=== PATIENT | female | born 1985 | race Caucasian/White ===

== ENCOUNTER 2017-11-10 15:51 | Day surgery (SDC) | payer OTHER ==
[~2017-11-10 15:51] MED LIST: Dexamethasone 20 MG/5 ML VIAL ONE; Glycopyrrolate 0.2 MG/ML 5 ML SYRINGE ONE; Ketorolac Tromethamine 30 MG/ML VIAL ONE; Lidocaine 1% PF 5 ML VIAL ONE; PHENYLEPHRINE-NS 100 MCG/ML 10 ML SYRINGE ONE; PROPOFOL 200 MG/20 ML VIAL ONE
[2017-11-10] MEDS ORDERED: CEFAZOLIN/Water 2 GM/20 ML SYRINGE ONE (16:29)
[2017-11-10 16:54] LABS: Hemoglobin 15.7 g/dL (12.0-16.0); Mean Corpuscular HGB CONC 35.6 g/dL (32.0-36.0); Mean Corpuscular Hemoglobin 34.6 pg (27.0-31.0); Mean Corpuscular Volume 97.3 fL (78.0-98.0); Mean Platelet Volume 7.4 fL (7.4-10.4); Platelet Count 167 thou/uL (130-400); RBC Distribution Width 10.7 % (11.5-14.5); Red Blood Cell (RBC) Count 4.53 mill/uL (4.20-5.40); White Blood Cell (WBC) Count 6.2 thou/uL (4.8-10.8)
[2017-11-10] MEDS ORDERED: Scopolamine 1.5 mg/72 hour Patch ONE (16:54)
[2017-11-10] MEDS ORDERED: Bupivacaine HCl 0.5%/Epinephrine 1:200,000/PF 30 ml Vial ONE (17:08)
[2017-11-10] MEDS ORDERED: Fentanyl 100 MCG/2 ML VIAL ONE ×3 (18:30→20:50)
[2017-11-10] MEDS ORDERED: Midazolam HCl 2 mg/2 ml Vial ONE ×2 (18:31→20:04)
[2017-11-10] MEDS ORDERED: Promethazine HCl 25 MG/ML VIAL ONE ×2 (20:04→22:13)
[2017-11-10] MEDS ORDERED: Lidocaine 2% Jelly 5 ML TUBE ONE (20:04)
--- NOTE | 2017-11-11 02:13 | OP ---
DATE OF SURGERY: 11/10/2017 PREOPERATIVE DIAGNOSIS: Complex left adnexal mass. POSTOPERATIVE DIAGNOSIS: Complex left adnexal mass. PROCEDURE: Laparoscopic cystectomy of the left ovary along with biopsy of the left ovarian parenchym a. ESTIMATED BLOOD LOSS: Less than 50 mL. COMPLICATIONS: None. SURGEON: Geoff Arias MD DETAILS OF THE PROCEDURE: After obtaining consent, Ms. Thomas was taken back to the operating tree m, where her general endotracheal anesthesia was found to be adequate. She was prepped and draped in the normal sterile fashion, placed in Mu stirrups. Her bladder was drained with red rubber shan ter. A uterine manipulator was placed in the vagina, which included only a sponge stick. Attention was turned to the abdomen after gloves were changed. 0.5% Marcaine with epinephrine was then used to inject at the umbilical site as well as the lower 2 abdominal trocar sites. Three 5-mm blunt trocar s were used to enter the peritoneal cavity after insufflating with the Veress needle and CO2 gas. Th e patient was placed into a Trendelenburg position and the uterus was manipulated exposing the left o vary, which was significantly enlarged measuring approximately 5 x 6 cm. Needle-tip cautery was then used to incise the thinnest portion of the ovarian serosa exposing a serous watery appearing fluid. This was suctioned using a suction field enumerator until the ovary was shrunk down to approximately 20% of its original size. The cystic area was then irrigated with normal saline multiple times and the flu id suctioned out. A small piece below the serosa of the ovary was sampled and sent to Pathology for permanent section. The posterior cul-de-sac did have some straw-colored free fluid in it upon entry. This was also suctioned and cleaned. Hemostasis at the ovarian serosa was excellent following suct ioning and no further cautery was necessary to obtain hemostasis. A quick survey of the pelvis did n ot reveal any other injuries or problems. At this point, CO2 gas was allowed to escape. All the tro cars and instruments were withdrawn and 4-0 Monocryl was used to close the incisions along with [place] lind adhesive. Sponge stick was removed from the vagina. Final sponge and needle counts were correc t x3. The patient was then extubated and transferred to an ambulatory bed and taken to recovery in s table condition.
== END 2017-11-10 22:55 | disposition home or self-care (01) ==
LOC: SDC 15:51
PROVIDERS: ATTEND Obstetrics & Gynecology
PROC: 0UB14ZZ Excision of Left Ovary, Percutaneous Endoscopic Approach (ICD-10-PCS; principal; 2017-11-10)
DX: N83.202 Unspecified ovarian cyst, left side (principal)
CPT/HCPCS: 36415; 85027; 86850; 86900; 86901; 88305; 96374; J0670; J1100; J1885; J2001; J2250; J2550; J2704; J3010

== ENCOUNTER 2017-12-27 08:44 | Outpatient (CLI) | payer OTHER ==
[2017-12-27] MEDS ORDERED: Iopamidol 370 76% 100 ML VIAL ONE (09:00)
--- NOTE | 2017-12-27 10:48 | CT ---
CT OF THE ABDOMEN AND PELVIS WITH AND WITHOUT CONTRAST CT UROGRAM: Date: 12-27-17 Comparison: None. History: Low back pain, hematuria. Technique: Serial axial CT imaging is obtained at 5 mm intervals from the lung bases through the pubi c symphysis with and without IV contrast using a CT urogram protocol. Coronal reformatted imaging of the urographic phase provided. FINDINGS: Partially imaged breast implants are present. The imaged lung bases are unremarkable. No free intraperitoneal air is noted. Pre and post contrast imaging of the liver, spleen, gallbladder, pancreas, and adrenal glands is unre markable. The precontrast imaging demonstrates no evidence for nephrolithiasis on either side. There is no hydr onephrosis on either side and no renal mass lesion is noted. Urographic phase imaging demonstrates tortuosity of the proximal right ureter which is slightly narro wed at the UPJ secondary to a crossing vessel. The urographic phase imaging is limited with respect t o the evaluation of the mid and distal ureter bilaterally as the mid and distal ureter does not conta in contrast media on either side. There is small volume free fluid in the pelvic cul-de-sac on the right. Ovarian cyst and/or dominant follicles are noted on the left, at least two such hypodense lesions johnny suring up to 1.1 cm. Limited assessment of the bowel demonstrates no evidence for inflammatory change or obstruction. The appendix is visualized and appears normal. The vascular structures of abdomen/pe lvis are patent. No lymphadenopathy in the abdomen or pelvis. No acute osseous abnormality. There are a few scattered subcentimeter sclerotic foci within the femoral heads bilaterally suggesting benign bone islands in the absence of known malignancy. IMPRESSION: No evidence for nephrolithiasis or obstructive uropathy. Proximal right ureter is tortuous and slight ly narrowed secondary to a crossing vessel. POS: AMAN
== END 2017-12-27 08:45 | disposition home or self-care (01) ==
LOC: SCSCT 08:44
PROVIDERS: ATTEND Urology
DX: R31.0 Gross hematuria (principal); N13.8 Other obstructive and reflux uropathy
CPT/HCPCS: 74178

== ENCOUNTER 2018-01-28 12:41 | Outpatient (CLI) | payer OTHER ==
--- NOTE | 2018-01-28 14:54 | ULT ---
Renal ultrasound: INDICATION: Concern for hydronephrosis. COMPARISON: Prior exam dated 12/27/2017. FINDINGS: The right kidney measures 10.7 x 3.1 x 4.8 cm. There is a small 4 mm nonobstructing calculus within the lower pole of the right kidney better seen on the CT examination dated 12/27/2017. Prevoid bladder volume is 162 cc. There are bilateral ureteral jets identified. Post void bladder v olume is 15.4 cc. The left kidney measures 11.5 x 5.0 x 4.8 cm. No focal renal lesion or hydronephrosis demonstrated. IMPRESSION: No focal renal lesion or hydronephrosis. Prevoid bladder volume is 162 cc. Post void bladder 15.4 c c. Micturated volume is 146.6 cc. POS: AMAN
== END 2018-01-28 12:42 | disposition home or self-care (01) ==
LOC: ULT 12:41
PROVIDERS: ATTEND Obstetrics & Gynecology
DX: N13.30 Unspecified hydronephrosis (principal)
CPT/HCPCS: 76770

== ENCOUNTER 2018-03-03 10:46 | Outpatient (CLI) | payer OTHER ==
--- NOTE | 2018-03-03 14:21 | NM ---
RADIONUCLIDE LASIX RENOGRAM 03/03/18 HISTORY: Ureteral structure due to crossing vessel. N13.5. FINDINGS: Early images show symmetric arterial uptake of each kidney. Latter images show symmetric excretion of radiotracer to the urinary bladder. Half life emptying of the right kidney is 7.3 minutes and the le ft is 5.0 minutes. Right kidney accounts for 54% of the uptake and the left kidney 46%. Normalized GFR is 229 mL/minute. IMPRESSION: Normal renogram. No evidence of obstruction. POS: AMAN
[2018-03-04] MEDS ORDERED: Furosemide 40 MG/4 ML VIAL ONE (13:32)
== END 2018-03-03 10:47 | disposition home or self-care (01) ==
LOC: NM 10:46
PROVIDERS: ATTEND Urology
DX: N13.5 Crossing vessel and stricture of ureter without hydronephrosis (principal)
CPT/HCPCS: 78708; A4641; A9562

== ENCOUNTER 2018-08-26 12:01 | Day surgery (SDC) | payer OTHER ==
[2018-08-25 09:57] VITALS: BMI 19.5
[2018-08-25 11:10] LABS: Hemoglobin 14.8 g/dL (12.0-16.0); Mean Corpuscular HGB CONC 34.4 g/dL (32.0-36.0); Mean Corpuscular Hemoglobin 34.2 pg (27.0-31.0); Mean Corpuscular Volume 99.7 fL (78.0-98.0); Platelet Count 182 thou/uL (130-400); RBC Distribution Width 10.7 % (11.5-14.5); Red Blood Cell (RBC) Count 4.33 mill/uL (4.20-5.40); White Blood Cell (WBC) Count 4.7 thou/uL (4.8-10.8)
[2018-08-25 11:36] LABS: BHCG - Serum Negative (NEGATIVE); Pregs Control Background? CLEAR/WHITE (CLR/WHITE); Pregs Control Bar Appear? YES (CONTROL BAR)
[2018-08-26] MEDS ORDERED: Fentanyl 250 MCG/5 ML VIAL ONE (12:03)
[2018-08-26] MEDS ORDERED: Morphine 4 MG/ML VIAL ONE (12:03)
[2018-08-26] MEDS ORDERED: Bupivacaine HCl 0.5%/Epinephrine 1:200,000/PF 30 ml Vial ONE (12:17)
[2018-08-26] MEDS ORDERED: Scopolamine 1.5 mg/72 hour Patch ONE (12:18)
[2018-08-26] MEDS ORDERED: Midazolam HCl 2 mg/2 ml Vial ONE ×2 (12:18→12:36)
[2018-08-26] MEDS ORDERED: Fentanyl 100 MCG/2 ML VIAL ONE (14:56)
[2018-08-26] MEDS ORDERED: HYDROcodone/Acetaminophen 5/325 mg Tablet ONE (15:41)
--- NOTE | 2018-08-26 22:04 | OP ---
DATE OF PROCEDURE: 08/26/2018 PREOPERATIVE DIAGNOSIS: Chronic pelvic pain and persistent ovarian cysts of the left fallopian tube and ovary. POSTOPERATIVE DIAGNOSIS: Chronic pelvic pain and persistent ovarian cysts of the left fallopian tube and ovary. PROCEDURE PERFORMED: Laparoscopic unilateral left salpingo-oophorectomy. ESTIMATED BLOOD LOSS: Less than 50 mL. COMPLICATIONS: None. DETAILS OF THE PROCEDURE: Ms. Thomas was consented and the risks, benefits, and alternatives of the surgery were reviewed with her in detail. We also specifically again reviewed the fact that without her left ovary the patient would need hormone replacement, given that her other ovary had been previously removed. We discussed restarting estradiol postoperatively in order to achieve a relatively normal estrogen level and to assist with symptoms of menopause postoperatively. The patient was taken to the operating room where she was prepped and draped in the normal sterile fashion, placed in a dorsal lithotomy position. Bladder was drained with red rubber catheter. She was then carefully draped. A time-out was performed before beginning surgery with the entire OR team. Next, 0.5% Marcaine with epinephrine was used at the umbilical site and more or the same was used in both left and right lower trocar sites. We in effect used the same 3 incisions as her previous surgery, where right ovary had been removed. We also paid particular attention to not extend any incision more than necessary as cosmesis was of the at most importance to the patient. A Veress needle was then used to enter the peritoneal cavity and the abdominal cavity was insufflated with CO2 gas to a pressure of 15 mmHg. Next, the patient was placed in a Trendelenburg position. Another 5 mm trocar was placed at the left lower side and an 11-mm trocar was placed at the right lower side. A careful survey of the pelvis was conducted looking at both anterior and posterior cul-de-sacs as well as both the left tube and ovary. The right tube and ovary were surgically absent. No large cysts or abnormalities were noted. Next, the 5-mm LigaSure was used to carefully clamp, coagulate, and cut the infundibulopelvic ligament on the left, right at the ovarian margin taking great care to avoid any contact or thermal injury to the ureter, which was considerably distant from our surgical site. Next, the ovarian and mesosalpinx were serially clamped, coagulated, and cut removing both portions of the fallopian tube containing a Falope ring, and the entire specimen was freed from the uterus and pelvis. The Endobag system was then used through the 11-mm trocar to collect the entire specimen which was then removed without any need to increase the incision size. One more careful survey of the abdomen and pelvis was conducted to ensure that no injuries or bleeding were noted and then the patient was leveled out and trocars removed to allow the CO2 gas to escape. Finally, the incisions were closed using 4-0 Monocryl and Dermabond adhesive. A sponge stick previously used to manipulate the uterus was carefully removed and the patient was extubated and allowed to awaken in the operating room while being transferred to an ambulatory bed and taken to recovery in stable condition. While I followed the patient to recovery and talked with her briefly as she awoke. I then went and talked to Jaimie's , Gavin in the waiting area and told him the details of surgery. Followup in clinic was recommended 2 weeks later. I told them to call me any time even after hours should they have any problems or questions. Job ID: [id number] [facility]
== END 2018-08-26 16:25 | disposition home or self-care (01) ==
LOC: SDC 12:01
PROVIDERS: ATTEND Obstetrics & Gynecology
PROC: 0UB14ZZ Excision of Left Ovary, Percutaneous Endoscopic Approach (ICD-10-PCS; principal; 2018-08-26)
PROC: 0UB64ZZ Excision of Left Fallopian Tube, Percutaneous Endoscopic Approach (ICD-10-PCS; principal; 2018-08-26)
DX: N83.12 Corpus luteum cyst of left ovary (principal); N83.292 Other ovarian cyst, left side; N83.8 Other noninflammatory disorders of ovary, fallopian tube and broad ligament; F32.9 Major depressive disorder, single episode, unspecified; F41.9 Anxiety disorder, unspecified; Z79.899 Other long term (current) drug therapy; Z88.1 Allergy status to other antibiotic agents; Z88.8 Allergy status to other drugs, medicaments and biological substances
CPT/HCPCS: 84703; 85027; 86850; 86900; 86901; 88305; J0131; J0670; J0690; J2250; J2270; J3010

== ENCOUNTER 2018-08-27 11:14 | Emergency (ER) | payer OTHER ==
[2018-08-27] MEDS ORDERED: Lidocaine 2% Jelly 5 ML TUBE ONE (11:45)
[2018-08-27] MEDS ORDERED: HYDROcodone/Acetaminophen 5/325 mg Tablet ONE (12:13)
[2018-08-27 12:26] LABS: Bilirubin Negative (Negative); Blood, Urine Trace (Negative); Clarity Clear (Clear); Glucose, Urine (Dipstick) Negative (Negative); Leukocyte Negative (Negative); Nitrite Negative (Negative); Protein, Urine (Dipstick) Negative (Neg-Trace); Urobilinogen 0.2 mg/dL (0.2-1.0)
[2018-08-27 12:31] LABS: Bacteria/HPF None Seen HPF (None Seen); RBC/HPF 0-3 HPF (0-3); Squamous Epithelial 0-3 HPF (0-3); WBC/HPF 0-3 HPF (0-3)
== END 2018-08-27 13:06 | disposition home or self-care (01) ==
LOC: SCSER 11:14
DX: N99.89 Other postprocedural complications and disorders of genitourinary system (principal); R33.9 Retention of urine, unspecified; F41.9 Anxiety disorder, unspecified; Z79.899 Other long term (current) drug therapy
CPT/HCPCS: 51702; 81003; 81015

== ENCOUNTER 2019-10-12 08:02 | Outpatient (CLI) | payer BC ==
--- NOTE | 2019-10-12 09:07 | MRI ---
MRI CERVICAL SPINE WITHOUT CONTRAST: HISTORY: Cervical radiculopathy. Neck pain that radiates across the left upper extremity. FINDINGS: The vertebral body heights and marrow signal are maintained. Small disk-osteophyte complexes are see n at C5-C6 and C6-C7 levels. No significant neural foraminal stenosis or central canal stenosis is s een. No cord impingement is identified. The central spinal cord demonstrates normal course, caliber , and signal. The paraspinal musculature is normal. No tonsillar herniation is seen. IMPRESSION: Mild cervical spondylosis. POS: OFF
== END 2019-10-12 08:03 | disposition home or self-care (01) ==
LOC: TBSIIMAG 08:02
PROVIDERS: ATTEND Family Medicine
DX: M47.22 Other spondylosis with radiculopathy, cervical region (principal)
CPT/HCPCS: 72141

== ENCOUNTER 2021-02-24 09:33 | Outpatient (CLI) | payer BC | END 2021-02-24 09:34 | disposition home or self-care (01) | LOC: SCSMRI 09:33 | PROVIDERS: ATTEND Nurse Practitioner Family | DX: M54.16 Radiculopathy, lumbar region (principal) | CPT/HCPCS: 72148 ==

== ENCOUNTER 2021-03-25 10:35 | Outpatient (CLI) | payer BC | END 2021-03-25 10:36 | disposition home or self-care (01) | LOC: BICRAD 10:35 | PROVIDERS: ATTEND Anesthesiology Pain Medicine | DX: M43.06 Spondylolysis, lumbar region (principal) | CPT/HCPCS: 72110 ==

== ENCOUNTER 2023-02-03 08:19 | Outpatient (CLI) | payer BC | END 2023-02-03 08:20 | disposition home or self-care (01) | LOC: BICMAMMO 08:19 | PROVIDERS: ATTEND Obstetrics & Gynecology | DX: N63.15 Unspecified lump in the right breast, overlapping quadrants (principal) | CPT/HCPCS: 77066; G0279 ==